=== PATIENT | male | born 1990 | race Caucasian/White ===

== ENCOUNTER 2022-03-10 08:57 | Emergency (ER) | payer MEDICAID ==
[~2022-03-10] VITALS: Ht 185.4 cm; Wt 113.6 kg
[2022-03-10 13:51] VITALS: BP 128/71
[2022-03-10] MEDS ORDERED: IBUP-2070 PO (13:58)
== END 2022-03-10 14:30 | disposition home or self-care (01) ==
LOC: EMS 09:00
DX: S83.91XA Sprain of unspecified site of right knee, initial encounter (principal); X58.XXXA Exposure to other specified factors, initial encounter; Y93.01 Activity, walking, marching and hiking; Y92.89 Other specified places as the place of occurrence of the external cause; Y99.8 Other external cause status
CPT/HCPCS: 29505; 29530; 93971; 99284; 73562-TC; 73630-TC; Z7502

== ENCOUNTER 2023-06-15 00:22 | Emergency (ER) | payer MEDICAID ==
[~2023-06-15] VITALS: Ht 190.5 cm; Wt 116.4 kg
[~2023-06-15 00:22] MED LIST: IBUP-1492 PO
[2023-06-15] MEDS ORDERED: ACETAMINOPHEN 500 MG TABLET PO ONE (01:15)
[2023-06-15] MEDS ORDERED: IBUPROFEN 600 MG TABLET PO ONE (01:15)
[2023-06-15] MEDS ORDERED: AMOX TR/POT CLAV 875 MG/125 MG TABLET PO ONE (01:15)
[2023-06-15] MEDS ORDERED: AMOX1TAB16 PO (01:25)
[2023-06-15] MEDS ORDERED: ACET-3385 PO (01:25)
[2023-06-15] MEDS ORDERED: IBUP-1492 PO (01:25)
[2023-06-15 02:00] VITALS: BP 132/70; PULSE 88; RESP 18; TEMP 98.3
== END 2023-06-15 02:09 | disposition home or self-care (01) ==
LOC: EMS 00:23
DX: K08.89 Other specified disorders of teeth and supporting structures (principal)
CPT/HCPCS: 99284; Z7502; Z7610